=== PATIENT | female | born 1985 | race Caucasian/White ===

== ENCOUNTER 2017-04-19 16:53 | Emergency (ER) | payer OTHER ==
--- NOTE | 2017-04-19 17:00 | PDOC ---
History of Present Illness - General History Source: Patient Exam Limitations: No Limitations - History of Present Illness Initial Comments: 04/19/17 17:19 The patient is a 32 year old female with a significant past medical history of asthma, rheumatoid arthritis, ADHD, who presents to the ED s/p fall. 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 Patient was able to get up on her power. She complains of left hip pain, right foot pain, right wrist, and lower back pain. She denies using any pain alleviation medications, but states she iced her back and right hip after the fall. Patient denies head pain, neck pain. Patient denies headache, fever, chills, nausea, vomiting, diarrhea. Patient denies dysuria, frequency. Past surgical hx: 4 hip surgeries as a child. Patient denies smoking. Patient drinks alcohol socially on the weekends. <Michael Joyner - Last Filed: 04/19/17 17:19> - General History Source: Patient Exam Limitations: No Limitations <Estela Little - Last Filed: 04/19/17 18:07> - General Chief Complaint: Injury Stated Complaint: FELL AT WORK RT SIDE BACK AND HIP PAIN Time Seen by Provider: 04/19/17 16:57 Past History <Michael Joyner - Last Filed: 04/19/17 17:19> <Estela Little - Last Filed: 04/19/17 18:07> - Past Medical History Allergies/Adverse Reactions: Allergies Allergy/AdvReac Type Severity Reaction Status Date / Time latex Allergy Verified 04/19/17 17:15 Home Medications: Ambulatory Orders Dextroamphetamine/Amphetamine [Adderall 10 mg Tablet] 10 mg PO DAILY 04/19/17 Medroxyprogesterone Acetate [Depo-Provera] 150 mg IM ASDIR 04/19/17 Methocarbamol [Robaxin -] 500 mg PO TID PRN #21 tablet 04/19/17 Review of Systems - Review of Systems Able to Perform ROS?: Yes Comments:: 04/19/17 17:19 GENERAL/CONSTITUTIONAL: No: fever, chills, weakness, loss of appetite. HEAD, EYES, EARS, NOSE AND THROAT: No: change in vision, ear pain, discharge, sore throat, throat swelling. CARDIOVASCULAR: No: chest pain, lightheadedness, palpitations, syncope RESPIRATORY: No: cough, shortness of breath, wheezing, hemoptysis, stridor. GASTROINTESTINAL: No: nausea, vomiting, abdominal cramping, diarrhea, rectal bleeding, constipation. GENITOURINARY: No: dysuria, hematuria, frequency, urgency, flank pain. MUSCULOSKELETAL: + left hip pain. + lower back pain. + right wrist pain. + right foot pain. No:neck pain, head pain. SKIN AND BREASTS: No: lesions, pallor, rash or easy bruising. NEUROLOGIC: No: headache, vertigo, paresthesias, weakness ENDOCRINE: No: unexplained weight gain or loss HEMATOLOGIC/LYMPHATIC: No: anemia, easy bleeding, swelling nodes <Michael Joyner - Last Filed: 04/19/17 17:19> *Physical Exam - Physical Exam Comments: 04/19/17 17:20 GENERAL: The patient is in no acute distress. HEAD: Normal with no signs of trauma. EYES: PERRLA, EOMI, sclera anicteric, conjunctiva clear. ENT: Ears normal, nares patent, oropharynx clear without exudates. Moist mucous membranes. NECK: Normal range of motion, supple without lymphadenopathy, JVD, or masses. LUNGS: Breath sounds equal, clear to auscultation bilaterally. No wheezes, and no crackles. HEART:Regular rate and rhythm, normal S1 and S2 without murmur, rub or gallop. ABDOMEN: Soft, nontender, normoactive bowel sounds. No guarding, no rebound. EXTREMITIES: Normal range of motion, no edema. No clubbing or cyanosis. No erythema, or tenderness. NEUROLOGICAL: Cranial nerves II through XII grossly intact. Normal speech. No focal neurological deficits. MUSCULOSKELETAL: Tender to palpation of the lateral left hip. Tender to the dorsum of the right foot. No CVA tenderness SKIN: Warm, Dry, normal turgor, no rashes or lesions noted. <Michael Joyner - Last Filed: 04/19/17 17:19> Medical Decision Making - Medical Decision Making 04/19/17 17:00 A portion of this note was documented by scribe services under my direction. I have reviewed the details of the note, within reason, and agree with the documentation with the following case summary and management plan written by me. 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 She is ambulatory with an antalgiac gait She moves all extremities with no difficulty She reports pain in her right foot over the dorsum of the 3rd and 4th metatarsal She has not taken any pain medications 04/19/17 18:03 Will do x rays Will give motrin for pain 04/19/17 18:04 X rays are negative as read by me Will discharge to home Motrin for pain Robaxin as needed 04/19/17 18:05 Follow up with PMD Return to the ER for any other concerns or complaints <Estela Little - Last Filed: 04/19/17 18:07> *DC/Admit/Observation/Transfer - Attestations Scribe Attestion: 04/19/17 17:21 Documentation prepared by Michael Joyner, acting as coroner/medical examiner for Estela Little MD. <Michael Joyner - Last Filed: 04/19/17 17:19> - Discharge Dispostion Admit: No <Estela Little - Last Filed: 04/19/17 18:07> Diagnosis at time of Disposition: Musculoskeletal pain - Discharge Dispostion Disposition: HOME Condition at time of disposition: Stable - Prescriptions Prescriptions: Methocarbamol [Robaxin -] 500 mg PO TID PRN #21 tablet PRN Reason: Pain - Patient Instructions Printed Discharge Instructions: DI for Musculoskeletal Pain Additional Instructions: Thank you for coming in to the ER today Take motrin for pain You can also take Robaxin as needed for pain Please return to the ER for any new symptoms or any other concerns or complaints Follow up with your primary care physician in 2-3 days - Post Discharge Activity Work/School Note: Back to Work
[2017-04-19 17:30] VITALS: BP 118/77; PULSE 94; TEMP 98.7; BMI 29.7
[2017-04-19] MEDS ORDERED: IBUPROFEN 600 MG TABLET (FP) PO ONE ×2 (18:03→18:07)
== END 2017-04-19 18:33 | disposition home or self-care (01) ==
LOC: FER 16:53
DX: M79.1 Myalgia (principal); W01.0XXA Fall on same level from slipping, tripping and stumbling without subsequent striking against object, initial encounter; Y93.89 Activity, other specified; Y92.219 Unspecified school as the place of occurrence of the external cause; J45.909 Unspecified asthma, uncomplicated; M06.9 Rheumatoid arthritis, unspecified; F90.9 Attention-deficit hyperactivity disorder, unspecified type
CPT/HCPCS: 73110-TC-RT; 73523-TC; 73630-TC-RT; 99281-25